=== PATIENT | male | born 1955 ===

== ENCOUNTER 2020-04-28 06:27 | Day surgery (SDC) | payer MEDICARE ==
[2020-04-28] MEDS ORDERED: Propofol 200 MG/20 ML SDV ONE (07:09)
[2020-04-28] MEDS ORDERED: fentaNYL 100 MCG/2 ML SDV ONE ×2 (07:09→08:27)
[2020-04-28] MEDS ORDERED: Midazolam 1 MG/ML 2 ML SDV ONE (07:09)
[2020-04-28] MEDS ORDERED: Dexamethasone 4 MG/ML 5 ML MDV ONE (07:15)
[2020-04-28] MEDS ORDERED: Ondansetron 4 MG/2 ML SDV ONE (07:15)
[2020-04-28] MEDS ORDERED: Lactated Ringers 1,000 ML IV SCH (07:15)
[2020-04-28] MEDS ORDERED: Sodium Chloride 0.9% 20 ML ONE (07:28)
--- NOTE | 2020-04-28 07:28 | PCM.PREANE ---
Preanesthetic Assessment - Anesthesia/Transfusion/Family Hx Anesthesia History: Prior Anesthesia Without Reaction Family History of Anesthesia Reaction: No Transfusion History: No Prior Transfusion(s) - Review of Systems General: No Symptoms Pulmonary: No Symptoms Cardiovascular: No Symptoms Gastrointestinal: No Symptoms Neurological: No Symptoms - Physical Assessment NPO Status Date: 04/27/20 Vital Signs: Last Vital Signs Temp 97.3 F 04/28/20 06:45 Pulse 96 04/28/20 06:45 Resp 15 04/28/20 06:45 BP 181/83 H 04/28/20 06:45 Pulse Ox 98 04/28/20 06:45 Height: 5 ft 11 in Weight: 104.326 kg ASA Class: 3 Mental Status: Alert & Oriented x3 Airway Class: Mallampati = 2 Dentition: Reports: Edentulous Lungs: Clear to Auscultation, Normal Respiratory Effort Cardiovascular: Regular Rate, Regular Rhythm - Allergies Allergies/Adverse Reactions: Allergies Allergy/AdvReac Type Severity Reaction Status Date / Time No Known Allergies Allergy Verified 04/24/20 12:16 - Blood Blood Available: No - Anesthesia Plan Pre-Op Medication Ordered: None - Acknowledgements Anesthesia Type Planned: General Anesthesia (LMA) Pt an Appropriate Candidate for the Planned Anesthesia: Yes Alternatives and Risks of Anesthesia Discussed w Pt/Guardian: Yes Pt/Guardian Understands and Agrees with Anesthesia Plan: Yes Additional Comments: PMH: [place], poorly controlled htn with sbps 175-180, dm2- on metformin am qewda=[id number], 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- atrial tachycardia, cleared by cardiology PLAN: ga/lma PreAnesthesia Questionnaire Other HEENT History: states wears glasses, has full upper and lower dentures and wears a hearing aid in left ear Cardiovascular History: Reports: High Cholesterol, Hypertension Respiratory History: Reports: None Gastrointestinal History: Reports: GERD Other Genitourinary History: states has had blood in urine Musculoskeletal History: Reports: None Neurological History: Reports: None Psychiatric History: Reports: None Endocrine/Metabolic History: Reports: Diabetes, Type II, Obesity/BMI 30+ Hematologic History: Reports: None Immunologic History: Reports: None Oncologic (Cancer) History: Reports: None Dermatologic History: Reports: None - Past Surgical History Head Surgeries/Procedures: Reports: None HEENT Surgical History: Reports: Naso-Sinus Surgery, Oral Surgery - SUBSTANCE USE Smoking Status *Q: Former Smoker - HOME MEDS Home Medications: Home Meds Calcium Carbonate [Tums] 500 mg PO ASDIRECTED PRN 04/24/20 [History] amLODIPine Besylate [Amlodipine Besylate] 10 mg PO DAILY 04/24/20 [History] atorvaSTATin [Lipitor] 40 mg PO BEDTIME 04/24/20 [History] carvediloL [Carvedilol] 6.25 mg PO DAILY 04/24/20 [History] lisinopriL [Lisinopril] 20 mg PO DAILY 04/24/20 [History] metFORMIN [Glucophage] 500 mg PO BID 04/24/20 [History] - CURRENT (IN HOUSE) MEDS Current Meds: Current Medications Lactated Ringer's (Ringers, Lactated) 1,000 mls @ 125 mls/hr IV ASDIRECTED ROCÍO Discontinued Medications Dexamethasone (Dexamethasone) Confirm Administered Dose 20 mg .ROUTE .STK-MED ON E Stop: 04/28/20 07:16 Fentanyl (Sublimaze) Confirm Administered Dose 100 mcg .ROUTE .STK-MED ONE Stop: 04/28/20 07:10 Lidocaine HCl (Xylocaine-Mpf 1%) Confirm Administered Dose 5 ml .ROUTE .STK-MED ONE Stop: 04/28/20 07:16 Midazolam HCl (Versed 1 Mg/Ml) Confirm Administered Dose 2 mg .ROUTE .STK-MED ONE Stop: 04/28/20 07:10 Ondansetron HCl (Zofran) Confirm Administered Dose 4 mg .ROUTE .STK-MED ONE Stop: 04/28/20 07:16 Propofol (Diprivan 20 Ml) Confirm Administered Dose 200 mg .ROUTE .STK-MED ONE Stop: 04/28/20 07:10
[2020-04-28] MEDS ORDERED: ceFAZolin 1 GM Vial ONE (08:04)
[2020-04-28] MEDS ORDERED: fentaNYL 100 MCG/2 ML SDV IVPUSH PRN (08:30)
[2020-04-28] MEDS ORDERED: Glycopyrrolate 0.2 MG/ML SDV ONE ×2 (08:36→08:40)
[2020-04-28] MEDS ORDERED: ePHEDrine 50 MG/ML SDV ONE (08:40)
[2020-04-28] MEDS ORDERED: Calcium Carbonate 500 MG Tab.Chew PO PRN (09:36)
--- NOTE | 2020-04-28 09:55 | PCM.POSTAN ---
POST ANESTHESIA ASSESSMENT - MENTAL STATUS Mental Status: Alert, Oriented - VITAL SIGNS Vital Signs: Last Vital Signs Temp 37.0 C 04/28/20 09:13 Pulse 105 H 04/28/20 09:49 Resp 14 04/28/20 09:49 BP 155/91 H 04/28/20 09:49 Pulse Ox 95 04/28/20 09:49 - RESPIRATORY Respiratory Status: Respiratory Rate WNL, Airway Patent, O2 Saturation Stable - CARDIOVASCULAR CV Status: Pulse Rate WNL, Blood Pressure Stable - GASTROINTESTINAL GI Status: No Symptoms - PAIN Pain Score: 0 - POST OP HYDRATION Hydration Status: Adequate & Stable
--- NOTE | 2020-04-28 11:20 | PCM48HPAN ---
Post Anesthesia Note - EVALUATION WITHIN 48HRS OF ANESTHETIC Vital Signs in Normal Range: Yes Patient Participated in Evaluation: Yes Respiratory Function Stable: Yes Airway Patent: Yes Cardiovascular Function Stable: Yes Hydration Status Stable: Yes Pain Control Satisfactory: Yes Nausea and Vomiting Control Satisfactory: Yes Mental Status Recovered: Yes Vital Signs: Last Vital Signs Temp 96.4 F L 04/28/20 10:00 Pulse 100 04/28/20 10:00 Resp 16 04/28/20 10:00 BP 157/85 H 04/28/20 10:00 Pulse Ox 96 04/28/20 10:00
--- NOTE | 2020-04-28 14:03 | OR ---
SURGEON: Daniel Vasquez M.D. DATE OF PROCEDURE: 04/28/2020 PREOPERATIVE DIAGNOSIS: Bladder tumor, medium, anterior wall. POSTOPERATIVE DIAGNOSIS: Bladder tumor, medium, anterior wall. OPERATION PERFORMED: Transurethral resection of bladder tumor. DESCRIPTION OF PROCEDURE: The patient was given general anesthesia. He was placed in dorsal lithotomy position and prepped and draped in sterile drapes. 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 The prostate was not obstructive. The inside of the bladder showed a tumor on the anterior wall of the bladder measuring about 2 cm with an inflammatory reaction immediately around it. The resectoscope was then placed and the tumor was resected in its entirety. In part, it appeared solid. The tumor was submitted in 2 parts; one is the bladder tumor, and the other specimen which was obtained using the cold cup biopsy forceps to avoid coagulation artifact was from the base of the tumor. The resection in part was deep enough to get into the wall of the bladder, not through, and I decided to put a Aguilar catheter at the end. All bleeding points were fulgurated. A 16-[place] Aguilar catheter was placed and connected to straight drainage that will stay in for the next 3 days. I will see the patient in 1 week to go over the path report and decide the next step. CHARLINE / RIGO /[id number]
[2020-04-28] MEDS ORDERED: metFORMIN 500 MG Tab PO SCH (21:00)
[2020-04-28] MEDS ORDERED: atorvaSTATin 10 MG Tab PO SCH (21:00)
[2020-04-29] MEDS ORDERED: Lisinopril 10 MG Tab PO SCH (09:00)
[2020-04-29] MEDS ORDERED: Carvedilol 12.5 MG Tab PO SCH (09:00)
[2020-04-29] MEDS ORDERED: AMLODIPINE BESYLATE 10 MG PO SCH (09:00)
== END 2020-04-28 11:30 | disposition home or self-care (01) ==
LOC: MW.SDS 06:27
PROVIDERS: ATTEND Urology
DX: C67.3 Malignant neoplasm of anterior wall of bladder (principal); E78.00 Pure hypercholesterolemia, unspecified; I10 Essential (primary) hypertension; F17.210 Nicotine dependence, cigarettes, uncomplicated; K21.9 Gastro-esophageal reflux disease without esophagitis; E11.9 Type 2 diabetes mellitus without complications; E66.9 Obesity, unspecified; Z68.32 Body mass index [BMI] 32.0-32.9, adult; Z79.84 Long term (current) use of oral hypoglycemic drugs; Z78.9 Other specified health status; Z79.899 Other long term (current) drug therapy
CPT/HCPCS: 52235; 82962; J0690; J1100; J2001; J2250; J2405; J2704; J3010; J3490; J7120; 00912; 88305; 88307